=== PATIENT | female | born 1985 | race African-American/Black ===

== ENCOUNTER 2016-12-08 17:26 | Emergency (ER) | payer MEDICAID ==
[~2016-12-08] VITALS: Ht 167.6 cm; Wt 52.0 kg
[2016-12-08 17:27] VITALS: BP 125/76; PULSE 61; RESP 15; TEMP 98.3; O2SAT 99
[2016-12-08 18:45] VITALS: BP 130/79; PULSE 58; RESP 18; O2SAT 100
[2016-12-08] MEDS ORDERED: SODIUM CHLOR 0.9% 1000 ML INJ 1,000 ML IV SCH (18:55)
[2016-12-08] MEDS ORDERED: ONDANSETRON HCL 4 MG/2 ML VIAL IVP ONE (19:00)
[2016-12-08] MEDS ORDERED: FAMOTIDINE 20 MG/2 ML VIAL IV PUSH ONE (19:00)
--- NOTE | 2016-12-08 19:10 | PD ---
HPI Chief Complaint: GI Complaint Time Seen by Provider: 19:01 Travel History International Travel<30 days: No Contact w/Intl Traveler<30days: No Traveled to known affect area: No History of Present Illness HPI 31- year old female complaining of vomiting starting this morning. Patient reports that the nausea/vomiting started at 11:30 am after eating shrimp fried rice and chicken. She states early today she had some epigastric pain, but denies any current pain. She states she has some chest tightness since this morning with the vomiting. She reports chills, hot flashes, and no appetite, but denies any changes in bowel habit, fever, fatigue. She reports her only medical history as asthma. She states there is a chance that she could be . [facility] Past Medical History Asthma: Yes Cardiovascular Problems: No Cerebrovascular Accident: No Diminished Hearing: No Reproductive: Yes (STD) Respiratory: Yes (asthma) Tetanus Vaccination: > 5 Years Influenza Vaccination: No ?: Not LMP: 10/25 : 5 Para: 1 Miscarriage: 2 : 1 Dilation and Curettage (D&C): Yes (05/2005) Past Surgical History Abdominal Surgery: Yes (UMBILICAL HERNIA REPAIR) Gynecologic Surgery: Yes (D & C - MAY 2005) Hysterectomy: No Social History Alcohol Use: No (DENIES) Tobacco Use: No (DENIES) Substance Use: Yes (marijuana) Allergies-Medications (Allergen,Severity, Reaction): Coded Allergies: No Known Allergies (Verified , 01/10/16) Reported Meds & Prescriptions Reported Meds & Active Scripts Active No Active Prescriptions or Reported Medications Review of Systems General / Constitutional: Positive: Chills, No: Fever, Weight Gain, Weight Loss, Other Eyes: No: Diploplia, Blurred Vision, Photophobia, Drainage, Redness, Foreign Body Sensation, Pain, Tearing, Blind Spots, Visual changes, Blindness, Other HENT: No: Headaches, Vertigo, Lightheadedness, Sore Throat, Rhinitis, Rhinorrhea, Congestion, Nosebleed, Neck Stiffness, Neck Pain, Masses, Gingival Bleeding, Dental Difficulties, Ear Discharge, Earache, Other Cardiovascular: No: Chest Pain or Discomfort, Palpitations, Irregular Rhythm, Tachycardia, Diaphoresis, Syncope, Dyspnea on exertion, Varicosities, Edema, Cyanosis, Varicosities, Phlebitis, Claudication, Other (chest tightness) Respiratory: No: Cough, Shortness of Breath, Wheezing, Sneezing, Orthopnea, Hemoptysis, Stridor, Night Sweats, Pleuritic Pain, Other Gastrointestinal: Positive: Nausea, Vomiting, Abdominal Pain, Loss of Appetite , No: Diarrhea, Hematemesis, Hematochezia, Constipation, Changes in Bowel Habits, Indigestion, Dysphagia, Other Genitourinary: No: Urgency, Frequency, Dysuria, Nocturia, Hematuria, Decreased Urinary Output, Oliguria, Hesitancy, Dribbling, Incontinence, Pelvic Pain, Flank Pain, Dyspareunia, Discharge, Dysmenorrhea, Menorrhagia, Metorrhagia, Vaginal Bleeding, Other Musculoskeletal: No: Myalgias, Arthralgias, Limited ROM, Weakness, Cramping, Edema, Pain, Atrophy, Other Skin: No Rash, No Itching, No Dryness, No Lumps, No Hives, No Change in Pigmentation, No Change in nails, No Alopecia, No Lesions, No Breast Lumps, No Breast Tenderness, No Breast Swelling, No Other Neurologic: No: Weakness, Dizziness, Syncope, Focal Abnormalities, Coordination Problem, Tremor, Ataxia, Headache, Change in Mentation, Slurred Speech, Paresthesia, Incontinence, Seizures, Sensory Disturbance, Other Physical Exam Narrative GENERAL: SKIN: Warm and dry. HEAD: Atraumatic. Normocephalic. EYES: Pupils equal and round. No scleral icterus. No injection or drainage. ENT: No nasal bleeding or discharge. Mucous membranes pink and moist. NECK: Trachea midline. No JVD. CARDIOVASCULAR: Regular rate and rhythm. RESPIRATORY: No accessory muscle use. Clear to auscultation. Breath sounds equal bilaterally. GASTROINTESTINAL: Abdomen soft, non-tender, nondistended. Hepatic and splenic margins not palpable. MUSCULOSKELETAL: Extremities without clubbing, cyanosis, or edema. No obvious deformities. NEUROLOGICAL: Awake and alert. No obvious cranial nerve deficits. Motor grossly within normal limits. Five out of 5 muscle strength in the arms and legs. Normal speech. PSYCHIATRIC: Appropriate mood and affect; insight and judgment normal. Data Data Last Documented VS Vital Signs Date Time Temp Pulse Resp B/P Pulse Ox O2 Delivery O2 Flow Rate FiO2 12/08/16 18:45 20 12/08/16 18:45 58 130/79 100 Room Air 12/08/16 17:27 98.3 Orders Complete Blood Count With Diff (12/08/16 18:55) Comprehensive Metabolic Panel (12/08/16 18:55) Lipase (12/08/16 18:55) Urinalysis - C+S If Indicated (12/08/16 18:55) Iv Access Insert/Monitor (12/08/16 18:55) Ondansetron Inj (Zofran Inj) (12/08/16 19:00) Sodium Chlor 0.9% 1000 Ml Inj (Ns 1000 M (12/08/16 18:55) Famotidine Inj (Pepcid Inj) (12/08/16 19:00) Ed Urine Pregnancytest Poc (12/08/16 18:55) Urine Culture (12/08/16 19:05) Labs Laboratory Tests Test 12/08/16 12/08/16 19:03 19:05 White Blood Count 8.8 TH/MM3 Red Blood Count 3.83 MIL/MM3 Hemoglobin 12.5 GM/DL Hematocrit 36.4 % Mean Corpuscular Volume 94.9 FL Mean Corpuscular Hemoglobin 32.7 PG Mean Corpuscular Hemoglobin 34.4 % Concent Red Cell Distribution Width 13.2 % Platelet Count 188 TH/MM3 Mean Platelet Volume 8.0 FL Neutrophils (%) (Auto) 83.7 % Lymphocytes (%) (Auto) 10.3 % Monocytes (%) (Auto) 3.9 % Eosinophils (%) (Auto) 0.5 % Basophils (%) (Auto) 1.6 % Neutrophils # (Auto) 7.4 TH/MM3 Lymphocytes # (Auto) 0.9 TH/MM3 Monocytes # (Auto) 0.3 TH/MM3 Eosinophils # (Auto) 0.0 TH/MM3 Basophils # (Auto) 0.1 TH/MM3 CBC Comment DIFF FINAL Differential Comment Sodium Level 141 MEQ/L Potassium Level 3.4 MEQ/L Chloride Level 105 MEQ/L Carbon Dioxide Level 25.7 MEQ/L Anion Gap 10 MEQ/L Blood Urea Nitrogen 14 MG/DL Creatinine 0.69 MG/DL Estimat Glomerular Filtration 120 ML/MIN Rate Random Glucose 88 MG/DL Calcium Level 9.0 MG/DL Total Bilirubin 0.5 MG/DL Aspartate Amino Transf 13 U/L (AST/SGOT) Alanine Aminotransferase 14 U/L (ALT/SGPT) Alkaline Phosphatase 38 U/L Total Protein 7.3 GM/DL Albumin 4.2 GM/DL Lipase 101 U/L Urine Color YELLOW Urine Turbidity HAZY Urine pH 6.5 Urine Specific [place] 1.027 Urine Protein 30 mg/dL Urine Glucose (UA) TRACE mg/dL Urine Ketones 10 mg/dL Urine Occult Blood TRACE Urine Nitrite NEG Urine Bilirubin NEG Urine Urobilinogen LESS THAN 2.0 MG/DL Urine Leukocyte Esterase NEG Urine RBC LESS THAN 1 /hpf Urine Squamous Epithelial 3 /hpf Cells Urine Bacteria MOD /hpf Urine Mucus FEW /lpf Microscopic Urinalysis Comment CULTURE INDICATED MDM Medical Decision Making Medical Screen Exam Complete: Yes Emergency Medical Condition: Yes Medical Record Reviewed: Yes Interpretation(s) CBC & BMP Diagram 12/08/16 19:03 LFTs and lipase WNL UA shows possible UTI Differential Diagnosis Gastroenteritis Diverticulitis Food Poisoning Narrative Course 31-year-old female that presents to the ED for evaluation of nausea vomiting and abdominal pain. Patient was properly examined and was found to have signs and symptoms which appear to be likely related to gastroenteritis secondary to food poisoning. No sign of acute medical distress. Pain is improved. Patient only states that she feels nauseous. Labs and imaging were done and were essentially unremarkable other than for possible UTI. I believe this is less likely as she has no positive nitrates and leukocyte esterase we will treat her with Keflex to cover for this. She been a prescription for Zofran. Note for work. Told to the liquid diet. Follow-up with PCP. See ED worsening symptoms. Diagnosis Primary Impression: Gastroenteritis Additional Impression: UTI (urinary tract infection) Qualified Code: N30.01 - Acute cystitis with hematuria Patient Instructions: General Instructions Departure Forms: Tests/Procedures, Work Release Enter return to work date: Dec 10, 2016 Additional Instructions: Liquid diet until better. Take medications as prescribed. Follow-up with PCP. See ED for any worsening symptoms. Med/Other Pt SpecificInfo: Prescription(s) given Scripts Ondansetron (Zofran)4 Mg Tab4 Mg PO Q6HR PRN (NAUSEA OR VOMITING) #20 TAB Ref 0 Prov:Eric Freeman MD 12/08/16 Cephalexin (Keflex)500 Mg [id number] Mg PO Q12H 7 Days Ref 0 Prov:Eric Freeman MD 12/08/16 Disposition: 01 DISCHARGE HOME Condition: Stable Martín Zuñiga Dec 08, 2016 19:10
[2016-12-08 19:15] LABS: AUTOMATED NEUTROPHIL # 7.4 TH/MM3 (1.8-7.7); BASOPHIL # 0.1 TH/MM3 (0-0.2); BASOPHIL % 1.6 % (0.0-2.0); EOSINOPHIL % 0.5 % (0.0-4.0); HEMATOCRIT 36.4 % (35.0-46.0); HEMO FLAGS DIFF FINAL; LYMPH % 10.3 % (9.0-44.0); LYMPHOCYTE # 0.9 TH/MM3 (1.0-4.8); MEAN CELL VOLUME 94.9 FL (80.0-100.0); MEAN CORPUSCULAR HEMOGLOBIN 32.7 PG (27.0-34.0); MEAN CORPUSCULAR HGB CONC 34.4 % (32.0-36.0); MONO % 3.9 % (0.0-8.0); NEUT % 83.7 % (16.0-70.0); PLATELET COUNT 188 TH/MM3 (150-450); RED BLOOD COUNT 3.83 MIL/MM3 (4.00-5.30); RED CELL DISTRIBUTION WIDTH 13.2 % (11.6-17.2); WHITE BLOOD COUNT 8.8 TH/MM3 (4.0-11.0)
[2016-12-08 19:17] LABS: BACTERIA, URINE MOD /hpf; BLOOD, URINE TRACE (NEG); COMMENT (UR) CULTURE INDICATED; CULTURE IF INDICATED CULTURE INDICATED; GLUCOSE,URINE TRACE mg/dL (NEG); KETONE, URINE 10 mg/dL (NEG); MUCUS URINE FEW /lpf (OCC); NITRITE,URINE NEG (NEG); PH, URINE 6.5 (5.0-8.5); SQUAMOUS EPITHELIAL CELL URINE 3 /hpf (0-5); URINE COLOR YELLOW (YELLW/STRAW)
[2016-12-08 19:41] LABS: ANION GAP 10 MEQ/L (5-15); AST (GOT) 13 U/L (15-37); BICARBONATE 25.7 MEQ/L (21.0-32.0); BLOOD UREA NITROGEN 14 MG/DL (7-18); CHLORIDE 105 MEQ/L (98-107); GLOMERULAR FILTRATION RATE 120 ML/MIN (>89); POTASSIUM 3.4 MEQ/L (3.5-5.1); SODIUM (NA) 141 MEQ/L (136-145)
[2016-12-08 19:42] LABS: ALT (GPT) 14 U/L (10-53)
[2016-12-08 19:44] LABS: ALKALINE PHOSPHATASE 38 U/L (45-117); TOTAL BILIRUBIN ADULT 0.5 MG/DL (0.2-1.0)
[2016-12-08] MEDS ORDERED: CEPH-460 PO (20:13)
[2016-12-08] MEDS ORDERED: ZOFR4TAB PO (20:13)
[2016-12-08 20:19] VITALS: BP 137/79
== END 2016-12-08 20:43 | disposition home or self-care (01) ==
LOC: NEPC 17:26
DX: K52.9 Noninfective gastroenteritis and colitis, unspecified (principal); N30.01 Acute cystitis with hematuria; B96.89 Other specified bacterial agents as the cause of diseases classified elsewhere
CPT/HCPCS: 80053; 81001; 83690; 84703; 85025; 87086; 96374; 96375; 99284; J2405; J7030

== ENCOUNTER 2016-12-16 20:03 | Emergency (ER) | payer OTHER, MEDICAID ==
[~2016-12-16] VITALS: Ht 167.6 cm; Wt 55.0 kg
[~2016-12-16 20:03] MED LIST: CEPH-460 PO; ZOFR4TAB PO
[2016-12-16 20:05] VITALS: BP 145/75; PULSE 70; RESP 16; TEMP 98.9; O2SAT 100
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
[2016-12-16] MEDS ORDERED: CYCL1TAB29 PO (21:08)
[2016-12-16] MEDS ORDERED: DICL75TA PO (21:08)
[2016-12-16] MEDS ORDERED: IBUPROFEN 600 MG TAB PO ONE (21:15)
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
== END 2016-12-16 22:06 | disposition home or self-care (01) ==
LOC: NEPK 20:03
DX: S63.642A Sprain of metacarpophalangeal joint of left thumb, initial encounter (principal); S33.9XXA Sprain of unspecified parts of lumbar spine and pelvis, initial encounter; V43.52XA Car driver injured in collision with other type car in traffic accident, initial encounter; Y92.414 Local residential or business street as the place of occurrence of the external cause
CPT/HCPCS: 73130; 99284

== ENCOUNTER 2017-05-04 21:42 | Emergency (ER) | payer MEDICAID ==
[~2017-05-04] VITALS: Ht 167.6 cm; Wt 51.0 kg
[~2017-05-04 21:42] MED LIST changes: -CEPH-460 PO; +CYCL10TA PO; +DICL75TA PO; -ZOFR4TAB PO
--- NOTE | 2017-05-04 21:51 | PD ---
HPI Chief Complaint: COLD FLU Time Seen by Provider: 21:48 Travel History International Travel<30 days: No Contact w/Intl Traveler<30days: No Traveled to known affect area: No History of Present Illness HPI 32-year-old female with history of asthma presents to emergency department for evaluation of cough, chest congestion, fever, body aches since this morning. Patient states she has vomited one time. She has not had any diarrhea. She is nauseous throughout the day. Denies any chance of with last menstrual cycle pain last week. Patient states her son has been recently ill and she believes she has caught when he has. She denies any chest pain except with cough. Denies any other symptoms at this time. PFS Past Medical History Asthma: Yes Cardiovascular Problems: No Cerebrovascular Accident: No Diminished Hearing: No Reproductive: Yes (STD) Respiratory: Yes (asthma) Immunizations Current: Yes : 5 Para: 1 Miscarriage: 3 : 1 Dilation and Curettage (D&C): Yes (05/2005) Past Surgical History Abdominal Surgery: Yes (UMBILICAL HERNIA REPAIR) Gynecologic Surgery: Yes (D & C - MAY 2005) Hysterectomy: No Social History Alcohol Use: Yes (OCCASIONALLY, ONCE A MONTH ) Tobacco Use: No Substance Use: No Allergies-Medications (Allergen,Severity, Reaction): Coded Allergies: No Known Allergies (Verified , 12/16/16) Reported Meds & Prescriptions Reported Meds & Active Scripts Active Diclofenac Sodium DR (Diclofenac Sodium) 75 Mg Tabdr 75 Mg PO BID Flexeril (Cyclobenzaprine HCl) 10 Mg Tab 10 Mg PO TID Review of Systems Except as stated in HPI: all other systems reviewed are Neg Physical Exam Narrative GENERAL: Well-nourished female patient, in no acute distress. SKIN: Focused skin assessment warm/dry. HEAD: Atraumatic. Normocephalic. EYES: Pupils equal and round. No scleral icterus. No injection or drainage. ENT: No nasal bleeding or discharge. Mucous membranes pink and moist. Slight erythema without edema or exudate NECK: Trachea midline. No JVD. CARDIOVASCULAR: Elevated rate and rhythm. No murmur appreciated. RESPIRATORY: No accessory muscle use. Coarse but clear to cough with a faint inspiratory wheeze. Breath sounds equal bilaterally. GASTROINTESTINAL: Abdomen soft, non-tender, nondistended. Hepatic and splenic margins not palpable. MUSCULOSKELETAL: No obvious deformities. No clubbing. No cyanosis. No edema. NEUROLOGICAL: Awake and alert. No obvious cranial nerve deficits. Motor grossly within normal limits. Normal speech. PSYCHIATRIC: Appropriate mood and affect; insight and judgment normal. Data Data Last Documented VS Vital Signs Date Time Temp Pulse Resp B/P (MAP) Pulse Ox O2 Delivery O2 Flow Rate FiO2 05/04/17 21:52 99.2 95 20 111/55 (73) 100 Orders Orders Influenzae A/B Antigen (05/04/17 22:08) Albuterol-Ipratropium Neb (Duoneb Neb) (05/04/17 22:30) Dexamethasone Inj (Decadron Inj) (05/04/17 22:30) Ed Discharge Order (05/04/17 22:49) [facility] Medical Decision Making Medical Screen Exam Complete: Yes Emergency Medical Condition: Yes Medical Record Reviewed: Yes Differential Diagnosis Influenza versus common cold versus pneumonia versus bronchitis versus flulike illness versus other upper respiratory infection Narrative Course 32-year-old female presents to emergency department for evaluation. Patient appears nontoxic. Her vital signs are stable. She does have a low-grade temperature and lightly elevated heart rate. She'll be swabbed for influenza. She is given a DuoNeb treatment and Decadron injection. Influenza screen is negative. Upon reassessment, patient is breath sounds have cleared. She states that she feels less congested in her chest. I will start her on a short course of oral steroids and provide albuterol inhaler. She is encouraged to follow-up with primary care provider and return immediately with any acute worsening symptoms. Diagnosis Primary Impression: Bronchitis Referrals: Primary Care Physician Patient Instructions: Acute Bronchitis (ED), General Instructions Departure Forms: Tests/Procedures, Work Release Enter return to work date: May 06, 2017 Additional Instructions: Humidified air may help to alleviate symptoms Tylenol and/or ibuprofen as directed on the package as needed for fever and/or pain Maintain adequate oral hydration Return immediately with any acute worsening symptoms Med/Other Pt SpecificInfo: Prescription(s) given Scripts Albuterol 18 GM Inh (Ventolin Hfa 18 GM Inh) 90 Mcg/Act Aer 2 PUFF INH Q4H Y for SHORTNESS OF BREATH, #1 INHALER 0 Refills Prov: Mira Winter 05/04/17 Prednisone (Prednisone) 50 Mg Tab 50 MG PO DAILY for 5 Days, #5 TAB 0 Refills Prov: Mira Winter 05/04/17 Disposition: 01 DISCHARGE HOME Condition: Stable Mira Winter May 04, 2017 21:51
[2017-05-04 21:52] VITALS: BP 111/55; PULSE 95; RESP 20; TEMP 99.2; O2SAT 100
[2017-05-04] MEDS ORDERED: DEXAMETHASONE SOD PHOS 4 MG/ML VIAL IM ONE (22:30)
[2017-05-04] MEDS ORDERED: RESP: ALBUTEROL 2.5 MG/IPRATROPIUM 0.5 MG NEB (SCH) NEB ONE (22:30)
[2017-05-04] MEDS ORDERED: VENTAER INH (22:51)
[2017-05-04] MEDS ORDERED: PRED50 PO (22:51)
== END 2017-05-04 23:08 | disposition home or self-care (01) ==
LOC: NEPC 21:42
DX: J40 Bronchitis, not specified as acute or chronic (principal); J45.909 Unspecified asthma, uncomplicated; Z79.899 Other long term (current) drug therapy
CPT/HCPCS: 87804; 94664; 96372; 99284; J1100